=== PATIENT | female | born 1970 | race Caucasian/White ===

== ENCOUNTER 2022-12-14 19:25 | Emergency (ER) | payer BC ==
[2022-12-14] MEDS ORDERED: Sodium Chloride 0.9% 1,000 ML ONE (19:39)
[2022-12-14] MEDS ORDERED: Sodium Chloride 0.9% 1,000 ML IV ONE (19:45)
[2022-12-14 20:33] LABS: ANION GAP 15.9 mmol/L (5-15)
== END 2022-12-14 20:50 | disposition home or self-care (01) ==
LOC: KA.ED 19:25
DX: R55 Syncope and collapse (principal); R11.10 Vomiting, unspecified
CPT/HCPCS: 80053; 85025; 93005; 93010; 96360; 99284; 99284-25; J7030

== ENCOUNTER 2024-07-31 09:51 | Day surgery (SDC) | payer BC ==
[2024-07-31] MEDS ORDERED: Sodium Chloride 0.9% 10 ML Syringe FLUSH PRN (10:00)
[2024-07-31] MEDS: Lactated Ringers 1,000 ML IV SCH (11:25)
[2024-07-31] MEDS: Ondansetron 4 MG/2 ML SDV IVPUSH ONE (11:28)
[2024-07-31] MEDS ORDERED: Midazolam 1 MG/ML 2 ML SDV ONE (11:47)
[2024-07-31] MEDS ORDERED: Propofol 200 MG/20 ML SDV ONE (11:47)
[2024-07-31] MEDS: Iopamidol 755 Mg/ML 100 ML Bottle IV ONE (13:54)
[2024-07-31] MEDS: Sodium Chloride 0.9% 50 ML IV SCH (13:54)
== END 2024-07-31 14:14 | disposition home or self-care (01) ==
LOC: KA.SDS 09:51
PROVIDERS: ATTEND Family Medicine
DX: D12.6 Benign neoplasm of colon, unspecified (principal); K64.8 Other hemorrhoids; F41.1 Generalized anxiety disorder; F17.290 Nicotine dependence, other tobacco product, uncomplicated; E78.2 Mixed hyperlipidemia; Z79.899 Other long term (current) drug therapy
CPT/HCPCS: 00811; 71260; J2250; J2405; J2704; J3490; J7120; Q9967